=== PATIENT | female | born 1950 | race Caucasian/White ===

== ENCOUNTER → 2016-09-25 16:59 | Outpatient (CLI) | payer MEDICARE ==
[2016-01-15 14:31] VITALS: BMI 45.8
[~2016-09-25 16:59] MED LIST: ARTHROTEC EC 71 EACH PO; DESERYL100 MG PO; HYDROCODON-ACE1 EAC9 PO; OMEPRAZOLE40 MG PO; PROAIR HFA8.5 GM INH; PROZAC20 MG PO; VICTOZA0.6 MG/0.1 SQ; VITAMIN D250000 UNIT PO; XANAX0.5 MG PO
== END | disposition home or self-care (01) ==
LOC: D.MAMMO 14:30
DX: Z12.31 Encounter for screening mammogram for malignant neoplasm of breast (principal)

== ENCOUNTER → 2016-10-21 09:45 | Outpatient (CLI) | payer MEDICARE ==
[2016-01-15 14:31] VITALS: BMI 45.8
== END | disposition home or self-care (01) ==
LOC: D.MAMMO 09:45
DX: R92.8 Other abnormal and inconclusive findings on diagnostic imaging of breast (principal)

== ENCOUNTER 2016-11-24 05:25 | Day surgery (SDC) | payer MEDICARE ==
[~2016-11-24 05:25] MED LIST changes: +HYDROCODONE-APA1 TAB PO; +KLONOPIN0.5 MG PO
[2016-11-24 06:01] LABS: BASOPHILS 0.5 % (0-2); EOSINOPHILS 4.1 % (0-7); HEMATOCRIT 46.8 % (36.0-48.0); HEMOGLOBIN 14.9 g/dL (12-16); LYMPHOCYTES 38.6 % (15-50); MCHC 31.8 g/dL (31.0-37.0); MCV 100.4 fL (80.0-100.0); MONOCYTES 12.3 % (2-11); NEUTROPHILS 44.5 % (40-80); PLATELET COUNT 229 10x3/uL (130-400); RBC 4.66 10x6/uL (4.00-5.40); RDW 13.6 % (11.5-14.5); WBC 3.9 10x3/uL (4.8-10.8)
[2016-11-24 06:17] LABS: CALC OSMOLALITY 285 mosm/kg (275-300); CARBON DIOXIDE 32.1 mmol/L (21.0-32.0); CHLORIDE - SERUM 105 mmol/L (98-107); CREATININE - SERUM 0.8 mg/dL (0.6-1.3); GLUCOSE 97 mg/dL (74-106); POTASSIUM - SERUM 3.8 mmol/L (3.5-5.1); SODIUM 143 mmol/L (136-145); UREA NITROGEN 15 mg/dL (7-18); eGFR NON AFRICAN AMERICAN 77 mL/min (90-120)
[2016-11-24] MEDS ORDERED: OMEPRAZOLE40 MG PO (08:42)
[2016-11-24 08:50] VITALS: BP 115/72; BMI 42.6
[2016-11-24] MEDS ORDERED: HYDROCODONE-APA1 TAB PO (10:40)
--- NOTE | 2016-11-24 12:00 | NUR ---
1155 1 NORCO 10/325MG PO FOR PAIN TO LEFT BREAST. RANKS PAIN 07/18. EATING FULL LIQUID DIET WITHOUT DIFFICULTY. Denis ZAVALA R.N.
--- NOTE | 2016-11-24 15:27 | NUR ---
1330 DRESSED. AWAKE & ALERT. GIVEN DISCHARGE INFORMATION INCLUDING: RX: NORCO 10/325MG, MED REC, [facility] OUT PATIENT D/C INSTRUCTIONS, & [facility] COMPUTER GENERATED DISCHARGE INSTRUCTIONS FOR LUMPECTOMY. PT VOICED UNDERSTANDING. TO PRIVATE CAR PER WHEELCHAIR BY VOLUNTEER. HOME WITH SISTER LUIS FELIPE CORRALES. Denis ZAVALA R.N.
--- NOTE | 2016-11-27 13:11 | OP ---
PATIENT NAME: CE CHAPIN MEDICAL RECORD: [id number] :54 LOCATION:D.OPS ADMISSION DATE: SURGEON: ADELAIDE NY MD DATE OF OPERATION: 11/24/2016 PREOPERATIVE DIAGNOSES: 1. Left breast microcalcifications. 2. Arthritis. 3. Asthma. POSTOPERATIVE DIAGNOSES: 1. Left breast microcalcifications. 2. Arthritis. 3. Asthma. PROCEDURE: Needle local left breast lumpectomy. SURGEON: Adelaide Ny MD REPORT OF PROCEDURE: The patient's left breast was prepped and draped in sterile fashion. Preoperatively, the patient had had a stereotactic needle localization of some microcalcifications in the posterior aspect of the left breast. A skin incision was made on the superior aspect of the left breast and electrocautery was used to dissect through the subcutaneous tissues. We tunneled down around the wire all the way to its conclusion and was able to completely remove the wire and the surrounding tissues. The specimen was sent off to radiology. We were unable to definitively see the microcalcifications in the specimen, but the wire was intact and there was a good core of tissue around it. The patient's wound was then irrigated out thoroughly with normal saline. I inspected one more time and there were not any distinct masses that were palpable in the breast. A 3-0 Vicryl was used to close the subcutaneous space and 5-0 Monocryl was used to close the skin. We infused a total of 10 mL 0.25% Marcaine into the surrounding tissues and the wound was dressed appropriately. COMPLICATIONS: None. CONDITION: Stable. ANESTHESIA: General endotracheal and local. BLOOD LOSS: Minimal. TRANSINT:[id number] Voice Confirmation ID: [id number] DOCUMENT ID: [id number] ADELAIDE NY MD at 1311 CC: NESTOR SYED MD [id number] DICTATION DATE: 11/24/16 1038 CYTOLOGIST: 11/24/16 1101 [facility] 11/24/[address] [address]
== END 2016-11-24 13:30 | disposition home or self-care (01) ==
LOC: D.OPS 05:25 → D.PAN 07:30 → D.MAMMO 07:30 → D.OPS 07:30
PROVIDERS: Surgery
DX: R92.0 Mammographic microcalcification found on diagnostic imaging of breast (principal); M19.90 Unspecified osteoarthritis, unspecified site; J45.909 Unspecified asthma, uncomplicated; K21.9 Gastro-esophageal reflux disease without esophagitis; Z01.812 Encounter for preprocedural laboratory examination

== ENCOUNTER 2017-08-12 10:36 | Outpatient (CLI) | payer OTHER, MEDICAID ==
[~2017-08-12] VITALS: Ht 160 cm; Wt 131.8 kg
--- NOTE | ~2017-08-12 | OP ---
PATIENT NAME: CE CHAPIN MEDICAL RECORD: [id number] :54 LOCATION:D.CAT ADMISSION DATE: SURGEON: JASMEET SOSA MD DATE OF OPERATION: 08/12/2017 PROCEDURE: Lead portion of permanent pacemaker placement. SURGEON: Kasi Martin MD INDICATION: Sick sinus syndrome with pauses greater than 3 seconds. DESCRIPTION OF PROCEDURE: After left subclavian was cannulated via modified Seldinger technique via Dr. Martin, first, under fluoroscopic guidance, I placed the RV lead in RV apex without difficulty. After adequate R waves and thresholds were obtained, I then passed the right atrial lead into right atrial appendage without difficulty. After adequate thresholds and P waves were obtained, leads were attached to appropriate poles of the generator and pocket was closed via Dr. Martin. IMPRESSION: Successful lead portion of permanent pacemaker placement. COMPLICATIONS: None. ESTIMATED BLOOD LOSS: Minimal. DISPOSITION: To the floor, stable. TRANSINT:[id number] Voice Confirmation ID: [id number] DOCUMENT ID: [id number] JASMEET SOSA MD at 0816 CC: [id number] DICTATION DATE: 08/12/17 1404 MIX MILL TENDER: 08/12/17 1416 DEP CLI 08/13/17 [place] [address] [place] [address]
--- NOTE | ~2017-08-12 | HEMODYNAMI ---
PATIENT:CE CHAPIN MEDICAL RECORD: [id number] : 54 LOCATION:DDERIK ADMISSION DATE: 08/12/17 Generatedon:08/12/201714:12 Patient name: CE CHAPIN Patient #: [id number] SSN: : 1950 Date of study: 08/12/2017 Page: Of Hemodynamic Procedure Report Patient Data Patient Demographics Procedure consent was obtained First Name: CE Gender: Female Last Name: TAVARES : 1950 [facility] Initial: FANNIE Age: 66 year(s) Patient #: [id number] Race: Ethnicity: or Additional ID: [id number] Contact details [address]: [address] [place] [address] State: [place] City: [place] Zip code: [address] Past Medical History Allergies Allergen Reaction Date Comments Reported Sulfa drugs 08/12/2017 Admission Admission Data Admission Date: 08/12/2017 Admission Time: 10:36 Procedure Procedure Types Cath Procedure Diagnostic Procedure PPM/ICD PPM Dual Implant Sedation Charges Moderate Sedation up to 30 minutes Procedure Description Procedure Date Procedure Date: 08/12/2017 Procedure Start Time: 13:39 Procedure End Time: 14:09 Procedure Staff Name Function Gonzalo Pace MD Performing Physician Davion Nicholson RT Monitor Kasi Martin MD Assisting physician Jan Brock RN Nurse Steven De La O RT Scrub Yeimi Shankar RT Monitor Procedure Data Cath Procedure Fluoroscopy Diagnostic fluoroscopy Total fluoroscopy Time: 2.9 time: 2.9 min min Diagnostic fluoroscopy Total fluoroscopy dose: 112 dose: 112 mGy mGy Estimated blood loss: 10 ml Procedure Complications No complications Procedure Medications Medication Administration Route Dosage Ancef (1Gm/50ml NS) I.V.P.B 1 g Ancef Irrigation Topical 1 g (1gm/500ml NS) Fentanyl I.V. 50 mcg Versed I.V. 1 mg Oxygen NC 2 l/min Fentanyl I.V. 50 mcg Versed I.V. 1 mg Fentanyl I.V. 50 mcg Lopressor I.V. 5 mg Hemodynamics Rest Heart Rate: 66 (bpm) Snapshots Pre Cath Intra NCS Post Cath Vital Signs Time Heart Resp SPO2 etCO2 NIBP (mmHg) Rhythm Pain Sedation Rate (ipm) (%) (mmHg) Status Level (bpm) 13:20:19 70 17 96 0 157/81(126) NSR 0 (11) 10(A) , No pain 13:24:44 65 18 92 0 149/75(116) NSR 0 (11) 10(A) , No pain 13:29:03 66 16 95 0 146/78(117) NSR 0 (11) 10(A) , No pain 13:33:26 65 16 97 0 146/78(118) NSR 0 (11) 10(A) , No pain 13:37:42 67 16 96 0 145/82(120) NSR 0 (11) 10(A) , No pain 13:42:00 94 17 98 0 142/81(119) NSR 0 (11) 9(A) , No pain 13:46:20 71 17 95 0 141/72(103) NSR 0 (11) 9(A) , No pain 13:50:36 75 16 94 0 120/65(88) NSR 0 (11) 9(A) , No pain 14:00:57 100 17 98 0 155/94(138) NSR 0 (11) 9(A) , No pain 14:05:19 81 17 99 0 134/91(119) NSR 0 (11) 10(A) , No pain 14:09:35 76 16 98 0 129/84(114) NSR 0 (11) 10(A) , No pain Medications Time Medication Route Dose Verified Delivered Reason Notes Effective ness by by 13:14:46 Ancef I.V.P.B 1 g Gonzalo Montoya Per (1Gm/50ml St Abe Brock RN physician NS) 13:14:51 Ancef Topical 1 g Gonzalo Montoya Per Irrigation St Abe Brock RN physician (1gm/500ml NS) 13:31:54 Fentanyl I.V. 50 Gonzalo Montoya for mcg [facility] Abe Brock RN sedation 13:32:01 Versed I.V. 1 mg Gonzalo Montoya for [facility] Abe Brock RN sedation 13:35:45 Oxygen NC 2 Gonzalo Montoya Per l/min St Abe Brock RN physician 13:38:21 Fentanyl I.V. 50 Gonzalo Montoya for [facility] Abe Brock RN sedation 13:38:26 Versed I.V. 1 mg Gonzalo Montoya for [facility] Abe Brock RN sedation 13:41:11 Fentanyl I.V. 50 Gonzalo Montoya for [facility] Abe Brock RN sedation 13:59:52 Lopressor I.V. 5 mg Gonzalo Montoya Per [facility] Abe Brock RN physician Procedure Log Time Note 12:53:56 Jan Brock RN sent for patient. Start room use. 12:53:59 Time tracking: Regular hours (M-F 7:00 - 5:00) 13:01:09 Informed consent obtained and on chart 13:01:14 Diagnostic Cath Status : Elective 13:04:25 Plan of Care:Hemodynamics will remain stable., Cardiac rhythm will remain stable., Comfort level will be maintained., Respiratory function will remain adequate., Patient/ family verbilizes understanding of procedure., Procedure tolerated without complication., Recovers from procedure without complications.. 13:05:32 PEELAWAY 7FR Safe Sheath (SU7) opened to sterile field. 13:05:33 Cautery Pushbutton Pencil opened to sterile field. 13:05:34 Mepilex Dressing ([id number]) opened to sterile field. 13:05:35 Cautery Tip Distribution Center Supervisor opened to sterile field. 13:05:36 PEELAWAY 7FR Safe Sheath (SU7) opened to sterile field. 13:06:08 3-0 Vicryl Single Pack [id number] opened to sterile field. 13:06:09 5-0 Monocryl PS3 [id number] opened to sterile field. 13:07:08 Medtronic 4574-45 PPM Lead opened to sterile field. 13:07:09 Medtronic 4074-52 PPM Lead opened to sterile field. 13:07:10 Medtronic Advisa MRI PPM Dual Generator [id number] opened to sterile field. 13:07:54 Patient received from Pre/Post Procedure Room to CCL 3 Alert and oriented. Tansferred to table in Supine position. 13:07:56 Warm blankets applied, and bahman hugger turned on for patient comfort. 13:07:56 Correct patient and procedure confirmed by team. 13:14:46 Ancef (1Gm/50ml NS) 1 g I.V.P.B was administered by Jan Brock RN; Per physician; 13:14:51 Ancef Irrigation (1gm/500ml NS) 1 g Topical was administered by Jan Brock RN; Per physician; 13:19:03 Vital chart was started 13:25:46 ECG and BP/O2 sat monitors applied to patient. 13:25:48 Baseline sample Acquired. 13:25:52 Rhythm: sinus rhythm 13:25:54 Full Disclosure recording started 13::19 H&P Date Dictated: 07/28/2017 Greater than 30 days; new H&P dictated by physician. Or brief H&P completed., Emergent; H&P N/A, Within 30 days and on chart., H&P Addendum completed by physician on day of procedure. (MUST COMPLETE FOR ALL OUTPATIENTS), ER History on chart., New H&P dictated by physician.. 13:27:33 Pre-procedure instructions explained to patient. 13:27:34 Pre-op teaching completed and patient verbalized understanding. 13:28:21 Family in waiting room. 13:28:23 Patient NPO since Breakfast. 13:28:35 Patient allergic to Sulfa drugs 13:29:13 Is the patient allergic to Iodine/contrast media? No. 13:29:18 Patient diabetic? No. 13:29:32 Is patient on blood thinner?No 13:29:36 Patient not . Patient is over age 55. 13:29:38 Previous problem with sedation/anesthesia? No ? 13:29:40 Snore? Yes 13:29:41 Sleep apnea? Yes 13:29:42 Deviated septum? No 13:29:43 Opens mouth fully? Yes 13:29:44 Sticks out tongue? Yes 13:29:51 Airway obstruction? Yes ASTHMA 13:29:55 Dentures? Yes IN TIGHT 13:30:00 Patient pain scale 0/10 ?. 13:30:13 IV patent on arrival in left antecubital with 0.9% NaCl at [facility]. 13:30:25 Left chest area was prepped with chlora-prep and draped in sterile fashion 13:30:26 Alarms reviewed by R. N. 13:30:26 Sharps counted by scrub and verified by R.N. 13:30:53 Medtronic 4574-45 PPM Lead opened to sterile field. 13:30:59 Medtronic 4074-52 PPM Lead opened to sterile field. 13:31:07 Medtronic Advisa MRI PPM Dual Generator [id number] opened to sterile field. 13:31:44 --------ALL STOP TIME OUT------ 13:31:44 Final Timeout: patient, procedure, and site verified with staff and physician. All members of the team are in agreement. 13:31:48 Left chest site verified by team. 13:31:52 Physical assessment completed. ASA score P 2 - A patient with mild systemic disease as per Gonzalo Pace MD. 13:31:54 Fentanyl 50 mcg I.V. was administered by Jan Brock RN; for sedation; 13:31:55 Sedation plan: IV Moderate Sedation Medication:Versed, Fentanyl 13:32:01 Versed 1 mg I.V. was administered by Jan Brock RN; for sedation; 13:33:37 Medtronic sales representative graphic art EUNICE FRANCISCO present for procedure. 13:34:34 5-0 Monocryl PS2 [id number] opened to sterile field. 13:34:34 2-0 Ticron Multipack ([id number]) opened to sterile field. 13:34:34 3-0 Vicryl Single Pack [id number] opened to sterile field. 13:35:45 Oxygen 2 l/min NC was administered by Jan Brock RN; Per physician; 13:38:21 Fentanyl 50 mcg I.V. was administered by Jan Brock RN; for sedation; 13:38:26 Versed 1 mg I.V. was administered by Jan Brock RN; for sedation; 13:38:53 Pre sharps counted by scrub and verified by RN: Sutures: 7; Sponges: 5; Stick needles: 2; Skin needles: 2; Blade: 1; Cautery: 1 13:38:55 Grounding pad site Left thigh. 13:38:57 Grounding pad site free from injury. 13:39:00 Procedure started. 13:39:37 Lidocaine 1% w/epi and Bupivacaine 0.5% was administered to left subclavicular area by Kasi Maritn MD . 13:40:35 Incision made to left subclavicular area. 13:41:11 Fentanyl 50 mcg I.V. was administered by Jan Brock RN; for sedation; 13:43:08 Generator pocket made/opened. 13:45:36 Left subclavian vein accessed with 7Fr Peel Away Sheath. 13:46:32 Left subclavian vein accessed with 7Fr Peel Away Sheath. 13:50:44 Ventricular lead inserted and advanced. 13:51:52 Atrial lead inserted and advanced. 13:54:01 Ventricular lead positioned. 13:54:24 Ventricular lead tested. 13:55:11 Atrial lead positioned. 13:55:32 Atrial lead tested. 13:57:58 Peel-a-way sheath was split and removed. 13:57:58 Peel-a-way sheath was split and removed. 13:58:10 PPM Dual was attached to lead(s) and inserted into pocket. 13:58:40 PPM Dual was inserted subcutaneously to left chest. 13:59:41 Device pocket was irrigated with Ancef. 13:59:52 Lopressor 5 mg I.V. was administered by Jan Brock RN; Per physician; 14:00:45 Atrial lead attachment was completed with 2-0 ticron. 14:00:51 Ventricular lead attachment was completed with 2-0 ticron. 14:00:58 Generator was sutured in place with 2-0 ticron. 14:01:46 Subcutaneous closure was completed with 3-0 vicryl. 14:01:50 Skin closure was completed with 5-0 monocryl. 14:04:51 Lt Chest incision was dressed with Mepilex dressing. 14:05:03 Post sharps counted by scrub and verified by RN: Sutures: 7; Sponges: 5; Stick needles: 2; Skin needles: 2; Blade: 1; Cautery: 1 14:05:33 Parameters-- Generator: Mode: AAIR/DDDR. Lower Rate: 60bpm. Upper Rate: 120bpm. 14:06:20 Parameters--Ventricular P/R Wave: 5.6mV. Current: .10mA; Threshold: .2V; Impedence: 984OHMS. 14:06:56 Parameters--Atrial P/R Wave: 2.8mV. Current: 1.40mA; Threshold: .8V; Impedence: 541OHMS. 14:07:09 Procedure ended.(Physican Out) 14:07:14 Fluoroscopy time 02.90 minutes. 14:07:20 Fluoroscopy dose: 112 mGy 14:07:20 Flurop Dose total: 112 14:07:32 Post-procedure physical assessment completed. ASA score P 2 - A patient with mild systemic disease as per Gonzalo Pace MD. 14:07:35 Post procedure rhythm: paced 14:07:37 Estimated blood loss: 10 ml 14:07:39 Post procedure instruction explained to patient.Patient verbalizes understanding. 14:07:39 Patient needs reinforcement of post procedure teaching. 14:08:16 Procedure type changed to Cath procedure, Diagnostic procedure, PPM/ICD, PPM Dual Implant, Sedation Charges, Moderate Sedation up to 30 minutes 14:08:51 Procedure and supply charges have been captured, reviewed, submitted and are correct. 14:08:54 Procedure Complication : No complications 14:08:57 Vital chart was stopped 14:08:57 See physician's report for complete and final results. 14:08:58 Report given to PCU. 14:09:00 Patient transfered to PCU with Bed. 14:09:02 Procedure ended. 14:09:02 Full Disclosure recording stopped 14:09:05 End room use (Document Last) Device Usage Item Name Manufacture Quantity Catalog Hospital Part Current Minimal Lot# / Number Charge Number Stock Stock Serial# Code PEELAWAY 7FR Microtek 2 SU7 [id number] 10 Safe Sheath Medical Inc[employer] (SU7) Cautery Microtek 1 [id number] 66953 [id number] 5 Pushbutton Medical Inc. Pencil Mepilex Cardinal 1 [id number] 667156 236436 675635 5 [facility] (754324) Cautery Tip Microtek 1 [id number] [id number] [id number] 5 Distribution Center Supervisor [employer] Inc. 3-0 Vicryl Ethicon 2 [id number] 985930 965987 945163 5 Single Pack [id number] 5-0 Monocryl Ethicon 1 [id number] 332353 608466 5 PS3 [id number] Medtronic Medtronic 2 4574-45 880788 926260 5 [id number] 4574-45 PPM EXP Lead 2019-03-12 [id number] Medtronic Medtronic 2 4074-52 667323 745245 5 [id number] 4074-52 PPM EXP Lead 2019-06-02 [id number] Medtronic Medtronic 2 [id number] [id number] [id number] 5 [id number] Advisa MRI EXP: PPM Dual 2018-09-04 Generator [id number] A2DR01 5-0 Monocryl Ethicon 1 Y495G 571627 348111 174417 5 PS2 Y495G 2-0 Ticron Ethicon 7 [id number] 769925 60667 040544 5 Multipack ([id number]) Signature Audit Banco Stage Time Signature Unsigned Intra-Procedure 08/12/2017 Yeimi Shankar 2:12:41 PM RT(R) Signatures Monitor : Davion Nicholson RT Signature : Date : Time : Monitor : Yeimi Shankar Signature : RT Date : Time : [place] [address] [place] [address]
--- NOTE | ~2017-08-12 | OP ---
PATIENT NAME: CE CHAPIN MEDICAL RECORD: [id number] :54 LOCATION:D.CAT ADMISSION DATE: SURGEON: KASI NY MD DATE OF OPERATION: 08/12/2017 PREOPERATIVE DIAGNOSES: 1. Sick sinus syndrome. 2. Diastolic dysfunction. 3. Morbid obesity with a BMI of 50. POSTOPERATIVE DIAGNOSES: 1. Sick sinus syndrome. 2. Diastolic dysfunction. 3. Morbid obesity with a BMI of 50. PROCEDURES: 1. Left subclavian vein dual-lead pacemaker. 2. Fluoroscopic interpretation. SURGEON: Kasi Ny MD CO-SURGEON: Gonzalo Ewing MD REPORT OF PROCEDURE: The patient's left chest was prepped and draped in sterile fashion. A total of 20 mL of 1% lidocaine with epinephrine was infused into the surrounding tissues. A transverse incision was made on the left superior lateral chest and a subcutaneous pouch was made over the pectoral fascia. We accessed the left subclavian vein x2 and guidewires were advanced. Fluoroscopy was used to note that the wires were in good position in the venous system. Dilator trocar device was replaced over the wires and the wires and dilators were removed. The leads were advanced through the trocars. At this point, Dr. Ewing, positioned the leads appropriately in the atrium and ventricle. Once the leads were noted to be in good position, then the trocars were removed. The leads were affixed to the pacemaker and the pacemaker was placed in the subcutaneous pouch. The leads and the pacemaker were all sutured to the pectoral fascia using interrupted 0 Ti-Cron. The wound was then irrigated out with antibiotic solution. The subcutaneous tissues were reapproximated with interrupted 3-0 Vicryl and the skin was closed with running subcutaneous 5-0 Monocryl. COMPLICATIONS: None. CONDITION: Stable. ANESTHESIA: Local MAC. BLOOD LOSS: Minimal. TRANSINT:[id number] Voice Confirmation ID: [id number] DOCUMENT ID: [id number] OPERATIVE REPORT [id number] TAVARESCE KASI SUGGS MD at 1418 CC: [id number] DICTATION DATE: 08/12/17 1411 SEWER PIPE CLEANER: 08/12/17 1424 DEP CLI 08/13/17 [place] [id number]
[2017-08-12] MEDS ORDERED: VITAMIN D5000 UNIT PO (10:53)
[2017-08-12] MEDS ORDERED: LEVOXYL25 MCG PO (10:53)
[2017-08-12] MEDS ORDERED: ZYRTEC10 MG PO (10:53)
[2017-08-12 11:15] VITALS: BP 148/76; Ht 160 cm; Wt 131.8 kg
[2017-08-12 11:20] LABS: HEMATOCRIT 41.5 % (36.0-48.0); HEMOGLOBIN 13.6 g/dL (12-16); MCH 32.1 pg (26.0-34.0); MCHC 32.8 g/dL (31.0-37.0); MCV 97.9 fL (80.0-100.0); MEAN PLATELET VOLUME 9.9 fL (7.4-10.4); RBC 4.24 10x6/uL (4.00-5.40); RDW 13.5 % (11.5-14.5); WBC 4.8 10x3/uL (4.8-10.8)
[2017-08-12 11:29] LABS: ANION GAP 8.8 mmol/L (8-16); CALCIUM 9.4 mg/dL (8.5-10.1); CARBON DIOXIDE 31.2 mmol/L (21.0-32.0); CREATININE - SERUM 0.9 mg/dL (0.6-1.3)
[2017-08-12 11:32] LABS: INR 0.99 (0.85-1.17); PROTIME 12.7 SECONDS (11.6-15.0)
[2017-08-13 08:00] VITALS: BP 145/77
== END 2017-08-13 12:30 | disposition home or self-care (01) ==
LOC: D.CATH 10:36 → D.M2 14:00 → D.CATH 08-13 12:30
PROVIDERS: Internal Medicine Interventional Cardiology
DX: I49.5 Sick sinus syndrome (principal); I50.30 Unspecified diastolic (congestive) heart failure; E66.01 Morbid (severe) obesity due to excess calories; Z68.43 Body mass index [BMI] 50.0-59.9, adult; Z01.812 Encounter for preprocedural laboratory examination

== ENCOUNTER → 2017-09-14 20:32 | Outpatient (CLI) | payer OTHER, MEDICAID ==
[2017-08-12 11:15] VITALS: BMI 51.4
[~2017-09-14 20:32] MED LIST changes: +LEVOXYL25 MCG PO; +VITAMIN D5000 UNIT PO; +ZYRTEC10 MG PO
== END | disposition home or self-care (01) ==
LOC: D.MAMMO 11:15
DX: Z12.31 Encounter for screening mammogram for malignant neoplasm of breast (principal)

== ENCOUNTER → 2017-10-05 09:36 | Outpatient (CLI) | payer OTHER, MEDICAID ==
[2017-08-12 11:15] VITALS: BMI 51.4
== END | disposition home or self-care (01) ==
LOC: D.MRI 10-04 11:00
DX: M17.0 Bilateral primary osteoarthritis of knee (principal)

== ENCOUNTER 2017-10-18 21:00 | Outpatient (CLI) | payer OTHER, MEDICAID ==
[2017-08-12 11:15] VITALS: BMI 51.4
== END 2017-10-18 23:59 | disposition home or self-care (01) ==
LOC: D.MAMMO 21:00
DX: R92.8 Other abnormal and inconclusive findings on diagnostic imaging of breast (principal)

== ENCOUNTER → 2018-05-11 17:20 | Outpatient (CLI) | payer OTHER, MEDICAID ==
[2017-08-12 11:15] VITALS: BMI 51.4
== END | disposition home or self-care (01) ==
LOC: D.MAMMO 05-05 10:30 → D.US 05-05 11:30 → D.MAMMO 11:00
PROVIDERS: ATTEND Family Medicine
DX: R92.8 Other abnormal and inconclusive findings on diagnostic imaging of breast (principal)

== ENCOUNTER → 2018-06-22 11:04 | Outpatient (CLI) | payer OTHER, MEDICAID ==
[2017-08-12 11:15] VITALS: BMI 51.4
== END | disposition home or self-care (01) ==
LOC: D.HCCARDIO 11:00
PROVIDERS: ATTEND Internal Medicine Cardiovascular Disease
DX: R00.2 Palpitations (principal)

== ENCOUNTER 2018-06-29 12:00 | Outpatient (CLI) | payer OTHER, MEDICAID ==
--- NOTE | ~2018-06-29 | HEMODYNAMI ---
PATIENT:CE CHAPIN MEDICAL RECORD: [id number] : 54 LOCATION:[facility] ADMISSION DATE: 06/29/18 Generatedon:06/29/201814:06 Patient name: CE CHAPIN Patient #: [id number] SSN: : 1950 Date of study: 06/29/2018 Page: Of Hemodynamic Procedure Report Patient Data Patient Demographics Procedure consent was obtained First Name: CE Gender: Female Last Name: TAVARES : 1950 [facility] Initial: FANNIE Age: 67 year(s) Patient #: [id number] Race: Ethnicity: or Additional ID: [id number] Contact details Address: [address] [place] [address] State: [place] City: [address] Zip code: [address] Past Medical History Allergies Allergen Reaction Date Comments Reported Sulfa drugs 08/12/2017 Other allergy 06/29/2018 sulfa Admission Admission Data Admission Date: 06/29/2018 Admission Time: 12:00 Weight (lbs.): 315.26 Weight (kg.): 143 Lab Results Lab Result Date: 06/29/2018 Lab Result Time: 0:40 Biochemistry Name Units Result Min Max BUN mg/dl 11 --(-*--)-- 7 18 Creatinine mg/dl 0.8 --(-*--)-- 0.6 1.3 CBC Name Units Result Min Max Hematocrit % 42.4 --(*---)-- 42 54 Hemoglobin g/dl 14.1 --(*---)-- 13.5 17.5 Procedure Procedure Types Cath Procedure Diagnostic Procedure [facility] w/Coronaries Sedation Charges Moderate Sedation up to 15 minutes Procedure Description Procedure Date Procedure Date: 06/29/2018 Procedure Start Time: 13:45 Procedure End Time: 14:05 Procedure Staff Name Function Orlin Vergara MD Performing Physician Agapito Morales RT Monitor Claudia Segovia RT Scrub Pedro Luis Wong RN Nurse Procedure Data Cath Procedure Fluoroscopy Diagnostic fluoroscopy Total fluoroscopy Time: 2.1 time: 2.1 min min Diagnostic fluoroscopy Total fluoroscopy dose: 963 dose: 963 mGy mGy Contrast Material Contrast Material Type Amount (ml) Isovue 300 61 Entry Location Entry Primary Successful Side Size Upsize Upsize Entry Closure Succes sful Closure Location (Fr) 1 (Fr) 2 (Fr) Remarks Device Remarks Femoral Right 5 Fr Exoseal artery Estimated blood loss: 5 ml Diagnostic catheters Device Type Used For End Catheter Placement MULTIPACK JL 4.0 5Fr Procedure catheter MULTIPACK 3DRC 5Fr Procedure catheter MULTIPACK Pigtail 5 Fr Procedure catheter Procedure Complications No complications Procedure Medications Medication Administration Route Dosage 0.9% NaCl I.V. 100 ml/hr Oxygen etCO2 Nasal cannula 2 l/min Heparin Flush Bag added to field 2 bags (1000units/500ml NS) Lidocaine 2% added to field 20 Versed I.V. 2 mg Fentanyl I.V. 100 mcg Versed I.V. 1 mg Hemodynamics Rest HGB: 14.1 (g/dl) Heart Rate: 68 (bpm) Pressure Samples Time Site Value (mmHg) Purpose Heart Use Rate(bpm) 14:00 LV 121/16,7 EDP 113 14:01 AO 165/78(116) Pullback 85 14:01 LV 151/-5,18 Pullback 85 Gradients Valve Time Site 1 Site 2 Mean SEP/DFP Peak To Heart Use (mmHg) (sec/min) Peak Rate (mmHg) (bpm) Aortic 14:01 LV AO 0 7 0 85 151/-5,18 165/78(116) Calculations Valve P-P Mean Valve Index Valve Source Name Gradient Area Flow (cm2) Aortic 0 0 0 0 Snapshots Pre Cath Intra NCS Post Cath Vital Signs Time Heart Resp SPO2 etCO2 NIBP (mmHg) Rhythm Pain Sedation Rate (ipm) (%) (mmHg) Status Level (bpm) 13:28:22 70 14 97 41.8 150/85(119) NSR 0 (11) 10(A) , No pain 13:32:36 67 15 94 38.1 140/85(111) NSR 0 (11) 10(A) , No pain 13:36:50 67 10 93 41.1 136/74(99) NSR 0 (11) 10(A) , No pain 13:41:02 64 19 94 40.3 137/74(103) NSR 0 (11) 10(A) , No pain 13:45:14 66 13 93 40.3 130/76(112) NSR 0 (11) 10(A) , No pain 13:49:22 66 18 92 40.4 126/83(95) NSR 0 (11) 10(A) , No pain 13:54:31 67 12 93 41.9 123/74(91) NSR 0 (11) 9(A) , No pain 13:58:37 69 13 93 42.6 117/82(108) NSR 0 (11) 9(A) , No pain 14:02:43 70 12 94 43.3 134/74(106) NSR 0 (11) 10(A) , No pain Medications Time Medication Route Dose Verified Delivered Reason Notes Eff ectiveness by by 13:28:59 0.9% NaCl I.V. 100 Pedro Luis Pedro Luis Per ml/hr Marvin Wong physician RN RN 13:29:08 Oxygen etCO2 2 Pedro Luis Pedro Luis for low 02 Nasal l/min Lorigan Lorigan sats cannula RN RN 13:29:17 Heparin Flush added 2 Pedro Luis Pedro Luis used for Bag to bags Lorigan Shanaigan procedure (1000units/500ml field RN RN NS) 13:29:27 Lidocaine 2% added 20ml Pedro Luis Pedro Luis for local to vial Lorigan Lorigan anesthetic field RN RN 13:41:02 Versed I.V. 2 mg Pedro Luis Pedro Luis for Lorigan Lorigan sedation RN RN 13:41:11 Fentanyl I.V. 100 Pedro Luis Pdero Luis for mcg Lorigan Lorigan sedation RN RN 13:43:14 Versed I.V. 1 mg Pedro Luis Pedro Luis for Lorigan Lorigan sedation RN medicare insurance specialist Log Time Note 13:14:02 Diagnostic Cath Status : Elective 13:14:22 Pedro Luis Wong RN sent for patient. Start room use. 13:14:24 Time tracking: Regular hours (M-F 7:00 - 5:00) 13:14:28 Plan of Care:Hemodynamics will remain stable., Cardiac rhythm will remain stable., Comfort level will be maintained., Respiratory function will remain adequate., Patient/ family verbilizes understanding of procedure., Procedure tolerated without complication., Recovers from procedure without complications.. 13:17:20 Patient received from Pre/Post Procedure Room to CCL 2 Alert and oriented. Tansferred to table in Supine position. 13:17:21 Warm blankets applied, and bahman hugger turned on for patient comfort. 13:17:21 Correct patient and procedure confirmed by team. 13:17:35 Signed procedure consent form obtained from patient. 13:17:37 ECG and BP/O2 sat monitors applied to patient. 13:17:38 Pre-procedure instructions explained to patient. 13:17:38 Pre-op teaching completed and patient verbalized understanding. 13:17:41 Family in waiting room. 13:17:43 Patient NPO since Breakfast. 13:27:14 Vital chart was started 13:27:17 Baseline sample Acquired. 13:27:19 Rhythm: sinus rhythm 13::21 Full Disclosure recording started 13::41 H&P Date Dictated: 06/13/2018 Within 30 days and on chart., H&P Addendum completed by physician on day of procedure. (MUST COMPLETE FOR ALL OUTPATIENTS). 13:27:58 Patient allergic to Other allergysulfa 13:28:59 0.9% NaCl 100 ml/hr I.V. was administered by Pedro Luis Wong RN; Per physician; 13:29:08 Oxygen 2 l/min etCO2 Nasal cannula was administered by Pedro Luis Wong RN; for low 02 sats; 13:29:17 Heparin Flush Bag (1000units/500ml NS) 2 bags added to field was administered by Pedro Luis Wong RN; used for procedure; 13:29:27 Lidocaine 2% 20ml vial added to field was administered by Pedro Luis Wong RN; for local anesthetic; 13:33:14 Is the patient allergic to Iodine/contrast media? No. 13:33:16 Is patient on blood thinner?No 13:33:17 Patient diabetic? No. 13:33:28 Previous problem with sedation/anesthesia? No ? 13:33:30 Snore? Yes 13:33:30 Sleep apnea? No 13:33:31 Deviated septum? No 13:33:32 Opens mouth fully? Yes 13:33:33 Sticks out tongue? Yes 13:33:38 Airway obstruction? Yes asthma 13:33:43 Dentures? Yes in tight 13:33:47 Modified Santos's test Ulnar < 7 seconds 13:33:49 Patient pain scale 0/10 .. 13:33:55 IV patent on arrival in left forearm with 0.9% NaCl at [facility]. 13:34:50 Lab Result : BUN 11 mg/dl 13:34:50 Lab Result : Hemoglobin 14.1 g/dl 13:34:50 Lab Result : Creatinine 0.8 mg/dl 13:34:50 Lab Result : Hematocrit 42.4 % 13:34:53 Lab results completed and on chart. 13:34:56 Right Radial & Right Groin area was prepped with chlora-prep and draped in sterile fashion 13:34:57 Alarms reviewed by R. N. 13:34:58 Sharps counted by scrub and verified by R.N. 13:35:01 ACIST Syringe (25611) opened to sterile field. 13:35:01 Medline Cath Pack ([id number]) opened to sterile field. 13:35:02 Bag Decanter (2002S) opened to sterile field. 13:35:03 ACIST Hand Control (31452) opened to sterile field. 13:35:03 ACIST Manifold (24779) opened to sterile field. 13:35:03 Tegaderm 4 x 4 (1626W) opened to sterile field. 13:35:04 MBrace Wrist Support ([id number]) opened to sterile field. 13:35:06 SHEATH 6FR Slender (36-1060) opened to sterile field. 13:35:07 DIAGNOSTIC WIRE .035 260cm J wire (814586) opened to sterile field. 13:35:07 NEEDLE Cook 21G 4cm Radial (Z49304) opened to sterile field. 13:37:01 Patient Weight : 315.26 lbs 13:38:23 Zero performed for pressure channel P1 13:39:15 Physician arrived 13:39:16 --------ALL STOP TIME OUT------ 13:39:16 Final Timeout: patient, procedure, and site verified with staff and physician. All members of the team are in agreement. 13:39:18 Right Radial & Right Groin site verified by team. 13:39:22 Maximum allowable Isovue 300 dose 300ml. Physician notified. (300ml for normal creatinines. For patients with creatinine of 1.7 or higher multiply weight(kg) x 5 divided by creatinine.) 13:39:25 Fire Safety Assessment: A--An alcohol-based skin anteseptic being used preoperatively., C--Open oxygen or nitrous oxide is being used., D--An ESU, laser, or fiber-optic light is being used. 13:39:27 Physical assessment completed. ASA score P 2 - A patient with mild systemic disease as per Orlin Vergara MD. 13:39:29 Sedation plan: IV Moderate Sedation Medication:Versed, Fentanyl 13:41:02 Versed 2 mg I.V. was administered by Pedro Luis Wong RN; for sedation; 13:41:11 Fentanyl 100 mcg I.V. was administered by Pedro Luis Wong RN; for sedation; 13:43:14 Versed 1 mg I.V. was administered by Pedro Luis Wong RN; for sedation; 13:45:17 Procedure started. 13:45:29 Local anesthetic to right radial artery with Lidocaine 2% by Orlin Vergara MD.INITIAL ACCESS ONLY 13:48:07 unable to gain radial access, moving to femoral approach. 13:49:49 SHEATH 5FR [place] (FLE228) opened to sterile field. 13:49:53 Use device set Multipack Set 13:49:55 DIAGNOSTIC Multipack 5Fr catheter set ([id number]) opened to sterile field. 13:50:51 Local anesthetic to right femoral artery with Lidocaine 2% by Orlin Vergara MD.ADDITIONAL ACCESS 13:52:04 A 5 Fr sheath was inserted into the Right Femoral artery 13:52:14 A MULTIPACK JL 4.0 5Fr catheter was advanced over the wire and used for Procedure. 13:54:16 LCA angiography performed. 13:55:28 Catheter exchanged over wire. 13:55:33 A MULTIPACK 3DRC 5Fr catheter was advanced over the wire and used for Procedure. 13:56:52 RCA angiography performed. 13:57:22 Catheter exchanged over wire. 13:57:27 A MULTIPACK Pigtail 5 Fr catheter was advanced over the wire and used for Procedure. 14:00:39 LV hemodynamics recorded. 14:00:46 LV gram done using LEE 14:00:52 EF : 50 % 14:01:16 Catheter removed. 14:01:24 EXOSEAL 5Fr (EX500) opened to sterile field. 14:01:32 Sheath removed intact; hemostasis achieved with Exoseal to the Right Femoral artery. 14:01:36 Procedure ended.(Physican Out) 14:01:47 Fluoroscopy time 02.10 minutes. 14:01:53 Fluoroscopy dose: 963 mGy 14:01:53 Flurop Dose total: 963 14:01:56 Contrast amount:Isovue 300 61ml. 14:03:56 Sharps counted by scrub and verified by R.N. 14:04:05 Insertion/operative site no bleeding no hematoma. 14:04:07 Post-op/insertion site Right Femoral artery dressed using a 4 x 4 and Tegaderm. 14:04:43 Post right femoral artery:stable, soft, clean and dry 14:05:01 Post Procedure Pulses reassessed and unchanged 14:05:08 Post-procedure physical assessment completed. ASA score P 2 - A patient with mild systemic disease as per Orlin Vergara MD. 14:05:10 Post procedure rhythm: unchanged. 14:05:12 Estimated blood loss: 5 ml 14:05:13 Post procedure instruction explained to patient.Patient verbalizes understanding. 14:05:13 Patient needs reinforcement of post procedure teaching. 14:05:25 Procedure type changed to Cath procedure, Diagnostic procedure, LHC, LHC w/Coronaries, Sedation Charges, Moderate Sedation up to 15 minutes 14:05:43 Procedure and supply charges have been captured, reviewed, submitted and are correct. 14:05:45 Procedure Complication : No complications 14:05:47 Vital chart was stopped 14:05:47 See physician's report for complete and final results. 14:05:49 Report given to Pre/Post Procedure Room. 14:05:51 Patient transfered to Pre/Post Procedure Room with Stretcher. 14:05:53 Procedure ended. 14:05:53 Full Disclosure recording stopped 14:05:57 End room use (Document Last) Device Usage Item Name Manufacture Quantity Catalog Hospital Part Current Minimal Lot# / Number Charge Number Stock Stock Serial# Code ACIST Acist 1 77280 695608 701857 612491 20 Syringe Pathwright (19269) Systems Inc Medline Medline 1 [id number] 557988 17319 522285 5 Cath Pack ([id number]) Bag Microtek 1 574662 50255 355661 5 Decanter Medical Inc. () ACIST Hand Acist 1 80159 994586 772815 419035 5 Control Medical (84780) Systems Inc ACIST Acist 1 72672 659643 191396 021308 5 Manifold Medical (94846) Systems Inc Tegaderm 4 3M 1 1626W 578511 695299 626526 5 x 4 (1626W) MBrace Advanced 1 140-0250-00 926099 43952 949554 5 Wrist Vascular Support Dynamics ([id number]) SHEATH 6FR Terumo 1 [id number] 732662 786000 400425 5 Slender (80-1060) DIAGNOSTIC St Vladimir 1 179959 102657 049960 694922 30 WIRE .035 260cm J wire (833237) NEEDLE Cook Cook Medical 1 Z29518 343171 016024 529530 5 21G 4cm Radial (Z48189) SHEATH 5FR Terumo 1 JRE039 927866 042583 163427 5 [place] (WWE412) DIAGNOSTIC Cardinal 1 XC6505 577928 59054 164515 30 Multipack Health 5Fr catheter set (KJ5223) MULTIPACK Cardinal 1 060060 5 JL 4.0 5Fr Health catheter MULTIPACK Cardinal 1 662031 5 3DRC 5Fr Health catheter MULTIPACK Cardinal 1 274409 5 Pigtail 5 Health Fr catheter EXOSEAL 5Fr Cardinal 1 EX500 149095 236794 677119 10 (EX500) Health Signature Audit Logan Stage Time Signature Unsigned Intra-Procedure 06/29/2018 Agapito Morales 2:06:31 PM RT(R) Signatures Monitor : Agapito Morales RT Signature : Date : Time : [facility] [address] [place] [address]
[2018-06-29 12:43] VITALS: BP 157/74; BMI 54.2
[2018-06-29 12:55] LABS: BASOPHILS 0.3 % (0-2); EOSINOPHILS 1.2 % (0-7); HEMATOCRIT 42.4 % (36.0-48.0); HEMOGLOBIN 14.1 g/dL (12-16); LYMPHOCYTES 34.5 % (15-50); MCH 30.9 pg (26.0-34.0); MCHC 33.3 g/dL (31.0-37.0); MEAN PLATELET VOLUME 9.6 fL (7.4-10.4); PLATELET COUNT 236 10x3/uL (130-400); RBC 4.56 10x6/uL (4.00-5.40); RDW 14.6 % (11.5-14.5)
[2018-06-29 13:05] LABS: CALC OSMOLALITY 276 mosm/kg (275-300); CALCIUM 9.4 mg/dL (8.5-10.1); CARBON DIOXIDE 26.4 mmol/L (21.0-32.0); CHLORIDE - SERUM 104 mmol/L (98-107); CREATININE - SERUM 0.8 mg/dL (0.6-1.3); GLUCOSE 98 mg/dL (74-106); SODIUM 139 mmol/L (136-145); UREA NITROGEN 11 mg/dL (7-18); eGFR NON AFRICAN AMERICAN 76 mL/min (90-120)
--- NOTE | 2018-06-29 14:19 | NUR ---
PT ARRIVED BY STRETCHER. PLACED ON MONITORS. VSS. RIGHT GROIN DRESSING C/D/I. NO S/S OF HEMATOMA NOTED. FAMILY AT BEDSIDE.
--- NOTE | 2018-06-29 14:35 | NUR ---
RIGHT GROIN DRESSING C/D/I. NO S/S OF HEMATOMA NOTED. VSS. FAMILY AT BEDSIDE. CALL LIGHT WITHIN REACH.
--- NOTE | 2018-06-29 15:06 | NUR ---
PT RESTING COMFORTABLY. VSS. RIGHT GROIN DRESSING C/D/I. NO S/S OF HEMATOMA NOTED. FAMILY AT BEDSIDE. CALL LIGHT WITHIN REACH.
--- NOTE | 2018-06-29 15:15 | NUR ---
HEAD OF BED INC TO 30 DEGREES. RIGHT GROIN DRESSING C/D/I. NO S/S OF HEMATOMA NOTED. PT HAS CHRONIC BACK PAIN. REPOSITIONED FOR COMFORT. CALL LIGHT WITHIN REACH. VSS.
--- NOTE | 2018-06-29 15:58 | NUR ---
LEFT HAND PIV D/C'D WITH CATH TIP INTACT. PT TOLERATED WELL. HOB INC AND PT SET UP WITH SANDWICH TRAY AND DRINK. RIGHT GROIN DRESSING C/D/I. NO S/S OF HEMATOMA NOTED.
--- NOTE | 2018-06-29 16:12 | NUR ---
PT UP AND GETTING DRESSED. FINISHED EATING. DENIES NAUSEA AT THIS TIME.
--- NOTE | 2018-06-29 16:30 | NUR ---
PT AMBULATED WITH WALKER ASSIST TO RESTROOM. VOIDED WITHOUT DIFFICULTY. BACK TO ROOM. DISCUSSED DISCHARGE INSTRUCTIONS WITH PT AND PT'S FAMILY. THEY VOICED UNDERSTANDING.
--- NOTE | 2018-06-29 16:39 | NUR ---
PT TAKEN OUT TO CAR BY WHEELCHAIR. NO S/S OF DISTRESS NOTED. ALL BELONGINGS AND PAPERWORK IN HAND.
== END 2018-06-29 16:40 | disposition home or self-care (01) ==
LOC: D.CATH 12:00
PROVIDERS: ATTEND Internal Medicine Cardiovascular Disease
DX: I20.9 Angina pectoris, unspecified (principal); Z01.812 Encounter for preprocedural laboratory examination

== ENCOUNTER → 2019-01-25 21:36 | Outpatient (CLI) | payer OTHER, MEDICAID | END | disposition home or self-care (01) | LOC: D.MAMMO 15:30 | PROVIDERS: ATTEND Clinical Nurse Specialist Family Health | DX: Z12.31 Encounter for screening mammogram for malignant neoplasm of breast (principal) ==

== ENCOUNTER 2019-03-28 13:10 | Inpatient (IN) | payer OTHER, MEDICAID ==
[~2019-03-28] VITALS: Ht 160 cm; Wt 122.5 kg
[~2019-03-28 13:10] MED LIST changes: -DESERYL100 MG PO; -PROZAC20 MG PO; +PROZAC40 MG PO; +TRAZODONE HCL150 MG PO
[2019-04-11] MEDS ORDERED: OXYBUTYNIN CHLOR5 MG PO (13:18)
[2019-04-11] MEDS ORDERED: PROAIR HFA8.5 G1 INH (13:19)
[2019-04-12 12:17] LABS: CALC OSMOLALITY 278 mosm/kg (275-300); CALCIUM 9.7 mg/dL (8.5-10.1); CARBON DIOXIDE 28.7 mmol/L (21.0-32.0); CHLORIDE - SERUM 103 mmol/L (98-107); CREATININE - SERUM 0.8 mg/dL (0.6-1.3); GLUCOSE 99 mg/dL (74-106); SODIUM 138 mmol/L (136-145); UREA NITROGEN 21 mg/dL (7-18); eGFR NON AFRICAN AMERICAN 76 mL/min (90-120)
[2019-04-12 13:26] LABS: BASOPHILS 0.4 % (0-2); HEMATOCRIT 43.5 % (36.0-48.0); IMMATURE GRANULOCYTES 0.1 % (0-5); LYMPHOCYTES 31.5 % (15-50); MCH 30.4 pg (26.0-34.0); MCHC 32.2 g/dL (31.0-37.0); MCV 94.4 fL (80.0-100.0); MEAN PLATELET VOLUME 11.1 fL (7.4-10.4); MONOCYTES 7.8 % (2-11); NEUTROPHILS 59.2 % (40-80); RBC 4.61 10x6/uL (4.00-5.40); RDW 16.4 % (11.5-14.5); WBC 7.1 10x3/uL (4.8-10.8)
[2019-04-12 13:41] LABS: PLATELET COUNT 294 10x3/uL (130-400)
[2019-04-12 13:52] LABS: APTT 29.1 SECONDS (22.8-39.4); INR 0.99 (0.85-1.17)
[2019-04-12 13:56] LABS: BILIRUBIN NEGATIVE (NEGATIVE); GLUCOSE NEGATIVE (NEGATIVE); KETONE SMALL mg/dL (NEGATIVE); NITRITE NEGATIVE (NEGATIVE); SPECIFIC GRAVITY 1.015 (1.005-1.020); UROBILINOGEN NORMAL (NORMAL)
[2019-04-12 13:57] LABS: BACTERIA FEW /hpf (NEGATIVE); EPITHELIAL CELLS 0-5 /hpf (0-5); RED CELLS - URINE NONE SEEN /hpf (0-5); WHITE CELLS - URINE 0-5 /hpf (NEGATIVE)
[2019-04-18 07:59] VITALS: BP 136/73; BMI 48.6
[2019-04-18 09:24] LABS: BACTERIA FEW /hpf (NEGATIVE); BILIRUBIN NEGATIVE (NEGATIVE); EPITHELIAL CELLS OCC /hpf (0-5); GLUCOSE NEGATIVE (NEGATIVE); KETONE NEGATIVE (NEGATIVE); NITRITE NEGATIVE (NEGATIVE); RED CELLS - URINE NONE SEEN /hpf (0-5); UROBILINOGEN NORMAL (NORMAL); WHITE CELLS - URINE OCC /hpf (NEGATIVE)
--- NOTE | 2019-04-18 12:58 | NUR ---
1215 PATIENT NOTED TO HAVING LARGE BRUISE ON LEFT LOWER EXTREMITY FRONT OF HOOK BY ANKLE, ALSO A VERY SMALL HEALED SCRAP AREA BELOW BRUISE, DR GRAY AWARE OF THIS, DARSHANA.
[2019-04-18 16:04] VITALS: BP 115/69
--- NOTE | 2019-04-18 16:06 | NUR ---
RECEIVED TO ROOM 1210 VIA BED FROM PACU. A/O X3. C/O PAIN LEVEL 100. WILL MONITOR. SKIN IS INTACT WITHOUT REDNESS EXCEPT INCISION TO LEFT KNEE WHICH HAS A CLEAN DRY DRESSING IN PLACE. SCD'S AND CALEB'S ON AT THIS TIME. DAUGHTER AT BEDSIDE.
[2019-04-18 16:07] VITALS: BP 115/69; BMI 47.9
--- NOTE | 2019-04-18 16:33 | NUR ---
GIVEN 4MG DILAUDID WITH 50MG VISTARIL PO FOR C/O LEFT KNEE PAIN LEVEL 10. WILL MONITOR. REPOSITIONED TO RIGHT SIDE PER PATIENT REQUEST.
[2019-04-18 16:39] VITALS: BP 95/60
[2019-04-18 17:00] VITALS: BP 118/73
--- NOTE | 2019-04-18 18:42 | MORECARE ---
CASE MANAGEMENT DISCHARGE SUMMARY PATIENT: CE CHAPIN FANNIE UNIT: [id number] ADM DATE: 04/18/19 AGE: 68 : 52 SEX: F ROOM/BED: D.1210 AUTHOR: DINA PATEL PHYSICIAN: REFERRING PHYSICIAN: RADHA GRAY DO DATE OF SERVICE: 04/18/19 Discharge Plan Patient Name: CE CHAPIN Facility: [facility]:[place] : 1950 Planned Disposition: Anticipated Discharge Date: Discharge Date: Expected LOS: Initial Reviewer: [email or web address] Initial Review Date: 04/18/2019 Generated: 04/18/19 7:42 pm Patient Name: CE CHAPIN Page 25325 at 1842 All edits/amendments must be made on the electronic document DICTATION DATE: 04/18/191841 EQUIP MAINT ENG: HIRAM 04/18/191841 RPT#: [id number] DC DATE: STATUS: ADM IN [facility] [address] [place] [address] END OF REPORT
--- NOTE | 2019-04-18 19:02 | NUR ---
CPM PLACED AT 1825. NO CHANGES NOTED.
--- NOTE | 2019-04-18 19:24 | NUR ---
PATIENT RESTING IN BED WITH NO S/S OF DISTRESS. GUEST AT BEDSIDE. PATIENT DENIES NEEDS AT THIS TIME. BED IN LOWEST POSITION AND CALL LIGHT WITHIN REACH. ENCOURAGED THE PATIENT TO CALL IF SHE HAS NEEDS. WILL CONTINUE TO MONITOR.
[2019-04-18 20:23] VITALS: BP 130/72
[2019-04-19 00:25] VITALS: BP 103/60
[2019-04-19 04:00] VITALS: BP 119/70
--- NOTE | 2019-04-19 05:35 | NUR ---
PLACED PATIENT ON CPM TO LEFT KNEE
[2019-04-19 06:23] LABS: HEMOGLOBIN 10.7 g/dL (12-16); MCH 29.8 pg (26.0-34.0); MCHC 31.5 g/dL (31.0-37.0); MCV 94.7 fL (80.0-100.0); MEAN PLATELET VOLUME 10.8 fL (7.4-10.4); RBC 3.59 10x6/uL (4.00-5.40); RDW 16.6 % (11.5-14.5); WBC 9.6 10x3/uL (4.8-10.8)
[2019-04-19 07:00] VITALS: BP 117/53
--- NOTE | 2019-04-19 08:15 | OP ---
PATIENT NAME: CE SANCHES MEDICAL RECORD: [id number] :54 LOCATION:D. D.1210 ADMISSION DATE:04/18/19 SURGEON: LOUIE GRAY DO DATE OF OPERATION: 04/18/2019 PROCEDURE PERFORMED: Left total knee arthroplasty. PREOPERATIVE DIAGNOSIS: Left knee osteoarthritis. POSTOPERATIVE DIAGNOSIS: Left knee osteoarthritis. INDICATIONS: Ms. Sanches is a 68-year-old female who has been seen by me. I informed her that her knees were horrible and she needed them replaced, but she waited too much and she has been coming back for weight checks and has lost a close to 50 pounds, I believe, so she has been very motivated and counting her calories and told her that if she continue that we would go ahead and proceed with a knee replacement, even though she would still be a high risk for infection, bleeding, damage to nerves and vessels, need for further surgery, continued pain, fracture, and blood clots, and even . She is aware of all that and signed the consent. SURGEON: Louie Gray DO DESCRIPTION OF PROCEDURE: The patient was taken to the operative suite, laid in the supine position, given general anesthetic. After given a block by anesthesia in preoperative area, LMA was placed. She was given 3 grams of Ancef and 80 mg gentamicin preoperatively. The left lower extremity was then prepped and draped in sterile fashion. A timeout was performed and everyone was in agreement with the correct side, site, patient and procedure. We then marked out the incision, covered in Ioban. Then use of a 10-blade scalpel to carefully dissect down to the capsule. A fresh 10 blade was then used. A medial parapatellar approach to the capsule and dissection was made down to the knee, open up the joint, there was severe osteoarthritis of the knee. The patella was then everted. Fat pad was removed and there were large osteophytes off the patella that were removed. We then milled down the patella. We then flexed the knee and entered the femoral canal and cut the distal femur and cut the proximal tibia. 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 Upon removal of the bone, this was later filled with cement. We then removed the excess bone and the menisci and coagulated any bleeding. She did not get TXA. Therefore, her blood loss was higher than normal. The extension block then fit well. We then sized the femur to be 77.0, 4-in-1 cutting block was used and it was cut, then cut out for the posterior stabilize notch in the femur and removed that and then drilled the lug holes as well and put the trial on, floated the tibia, marked rotation and drilled the patella for the implant. We then exposed the tibia, removed any other spurs that we saw and did a release of the popliteal tendon due to the fact that she was severely externally rotated in flexion and that was tight. We then released that and helped the problem. We then reamed and punched the tibia using a stem, 80 mm fin stem, and cement was mixed, put in after the tibia was irrigated, cement was put in the tibia and on the implant and impacted in place. Excess cement was removed. Femur was then impacted on and then a Poly was put in between, then brought the knee into extension and put the patella on and this was squeezed and held in place. Excess cement was removed from that, we then put a povidone iodine solution in the knee and let it sit for a 10% povidone iodine with 500 mL normal saline, let it sit for 3 minutes, irrigated that out with over a liter of normal saline and irrigated out OPERATIVE REPORT [id number] CE SANCHES FANNIE the knee. We then sized the poly, went up to an 18 posterior stabilized poly and it fit very well. Had good stability in flexion and extension with varus valgus stress. We then put the Won powder and vancomycin and tobramycin powder in the knee, closed the knee with #2 Ethibond. I was assisted with this by Robb Marshall. He also assisted with closing of the skin. He is a certified surgical first cook. I closed the skin with 2-0 Vicryl in an inverted interrupted fashion and ZipLine was placed on the knee and a wound VAC put over the knee, the Restor wound VAC. She was then awakened and taken to recovery in stable condition. Blood loss approximately 1 liter. COMPLICATIONS: None. TRANSINT:[id number] Voice Confirmation ID: [id number] DOCUMENT ID: [id number] LOUIE GRAY DO at 0862 CC: [id number] DICTATION DATE: 04/18/19 142 NEUROPSYCHIATRIST: 04/18/19 2218 ADM IN [facility] [address] [id number]
--- NOTE | 2019-04-19 08:35 | NUR ---
0835 REMOVED CPM FROM LEFT LEG
--- NOTE | 2019-04-19 09:16 | NUR ---
ENCOURAGED IS USE PATIENT PULLING 2000ML ON MULTIPLE ATTEMPTS
--- NOTE | 2019-04-19 10:31 | NUR ---
1030 DR GRAY ROUNDING ON PATIENT PHYSICAL THERAPY WORKING WITH PATIENT
--- NOTE | 2019-04-19 10:46 | MORECARE ---
CASE MANAGEMENT DISCHARGE SUMMARY PATIENT: CE CHAPIN FANNIE UNIT: [id number] ADM DATE: 04/18/19 AGE: 68 : 54 SEX: F ROOM/BED: D.1210 AUTHOR: DINA PATEL PHYSICIAN: REFERRING PHYSICIAN: RADHA GRAY DO DATE OF SERVICE: 04/19/19 Discharge Plan Patient Name: CE CHAPIN Facility: [facility]:[place] : 1950 Planned Disposition: Anticipated Discharge Date: Discharge Date: Expected LOS: Initial Reviewer: [email or web address] Initial Review Date: 04/18/2019 Generated: 04/19/19 11:46 am Comments DCP- Discharge Planning Updated by [email or web address]: Erin Lopez on 04/19/19 9:[address] Plan: [facility]. CM met with patient to discuss initial discharge planning. Patient is in agreement to proceed with the assessment with present. Patient reports that she lives at home independently with her spouse. Patient is alert/oriented. Stairs/steps: 3 w/rails. PCP: Dr.Katherine Gaviria. Pharmacy: [place] [facility] [id number]. Patient states they have been able to obtain all of their prescribed medications. HHS: Yes HHS current. DME: Walker, cane, shower bench. Patient gives permission to speak with family members/care givers. 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 CM discussed the availability of HH, Rehab, DME services. Patient states she would like to go into [facility]. Patient denies being hospitalized within the past 30 days. Patient denies the use of community resources FAMILY ENGAGEMENT SPECIALIST. Transportation at time of discharge: Facility. CM will assist with DC plans/needs PRN. Last DP export: 04/18/19 5:42 p Patient Name: CE CHAPIN Page 97675 at 1046 All edits/amendments must be made on the electronic document DICTATION DATE: 04/19/19 1046 PRESS SET UP: HIRAM 04/19/19 1046 RPT#: [id number] DC DATE: STATUS: ADM IN [facility] [address] [place] [address] END OF REPORT
[2019-04-19 14:48] VITALS: Ht 160 cm; Wt 122.5 kg
[2019-04-19 15:00] VITALS: BP 116/57
--- NOTE | 2019-04-19 17:58 | MORECARE ---
CASE MANAGEMENT DISCHARGE SUMMARY PATIENT: CE CHAPIN FANNIE UNIT: [id number] ADM DATE: 04/18/19 AGE: 68 : 52 SEX: F ROOM/BED: D.1210 AUTHOR: DINA PATEL PHYSICIAN: REFERRING PHYSICIAN: RADHA GRAY DO DATE OF SERVICE: 04/19/19 Discharge Plan Patient Name: CE CHAPIN Facility: [facility]:[place] : 1950 Planned Disposition: Anticipated Discharge Date: Discharge Date: Expected LOS: Initial Reviewer: [email or web address] Initial Review Date: 04/18/2019 Generated: 04/19/19 6:58 pm Comments DCP- Discharge Planning Updated by [email or web address]: Erin Lopez on 04/19/19 9:[address] Plan: [facility]. CM met with patient to discuss initial discharge planning. Patient is in agreement to proceed with the assessment with present. Patient reports that she lives at home independently with her spouse. Patient is alert/oriented. Stairs/steps: 3 w/rails. PCP: Dr.Katherine Gaviria. Pharmacy: [place] [facility] [address]. Patient states they have been able to obtain all of their prescribed medications. HHS: Yes HHS current. DME: Walker, cane, shower bench. Patient gives permission to speak with family members/care givers. 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 CM discussed the availability of HH, Rehab, DME services. Patient states she would like to go into [facility]. Patient denies being hospitalized within the past 30 days. Patient denies the use of community resources SIDE SHOW ENTERTAINER. Transportation at time of discharge: Facility. CM will assist with DC plans/needs PRN. Last DP export: 04/19/19 9:46 a Patient Name: CE CHAPIN Page [id number] at 3027 All edits/amendments must be made on the electronic document DICTATION DATE: 04/19/191757 COMMERCIAL REAL ESTATE ASSOCIATE: HIRAM 04/19/198 RPT#: [id number] DC DATE: STATUS: ADM IN [facility] [address] [place] [address] END OF REPORT
--- NOTE | 2019-04-19 18:27 | NUR ---
1500 DR CERVANTES ROUNDING ON PATIENT
--- NOTE | 2019-04-19 19:46 | NUR ---
PATIENT RESTING IN BED WITH EYES CLOSED AND NO S/S OF DISTRESS. BED IN LOWEST POSITION AND CALL LIGHT WITHIN REACH. WILL CONTINUE TO MONITOR.
[2019-04-19 20:17] VITALS: BP 145/64
[2019-04-20 01:07] VITALS: BP 113/42
[2019-04-20 04:15] VITALS: BP 115/51
--- NOTE | 2019-04-20 04:31 | NUR ---
PLACED PATIENT ON CPM TO LEFT KNEE
[2019-04-20 06:24] LABS: BASOPHILS 0.2 % (0-2); EOSINOPHILS 0.2 % (0-7); HEMATOCRIT 28.7 % (36.0-48.0); IMMATURE GRANULOCYTES 0.2 % (0-5); LYMPHOCYTES 17.1 % (15-50); MCH 29.6 pg (26.0-34.0); MCHC 31.4 g/dL (31.0-37.0); MCV 94.4 fL (80.0-100.0); MEAN PLATELET VOLUME 10.9 fL (7.4-10.4); MONOCYTES 14.9 % (2-11); NEUTROPHILS 67.4 % (40-80); PLATELET COUNT 209 10x3/uL (130-400); RBC 3.04 10x6/uL (4.00-5.40); RDW 16.9 % (11.5-14.5); WBC 8.6 10x3/uL (4.8-10.8)
[2019-04-20 06:36] LABS: CALC OSMOLALITY 273 mosm/kg (275-300); CALCIUM 8.5 mg/dL (8.5-10.1); CARBON DIOXIDE 29.9 mmol/L (21.0-32.0); CHLORIDE - SERUM 102 mmol/L (98-107); CREATININE - SERUM 0.7 mg/dL (0.6-1.3); GLUCOSE 107 mg/dL (74-106); POTASSIUM - SERUM 4.3 mmol/L (3.5-5.1); SODIUM 137 mmol/L (136-145); UREA NITROGEN 12 mg/dL (7-18); eGFR NON AFRICAN AMERICAN 89 mL/min (90-120)
[2019-04-20 07:29] VITALS: BP 115/48
--- NOTE | 2019-04-20 07:30 | NUR ---
CPM OFF AT THIS TIME.
--- NOTE | 2019-04-20 08:47 | NUR ---
AWAKE AND ALERT. ORIENTED X3. REPORTED PAIN LEVEL 8. GIVEN 10MG OXY IR PO WITH 50MG VISTARIL PO FOR SAME. WILL MONITOR. LUNGS ARE CLEAR BILATERALLY, NO COUGH NOTED. SKIN IS INTACT WITHOUT REDNESS EXCEPT INCISION TO LEFT KNEE WHICH HAS A DRY INTACT DRESSING IN PLACE. SL TO RIGHT HAND IS PATENT WITHOUT REDNESS AT ISNERTION SITE. ATE A FEW BITES OF BREAKFAST BUT STATED SHE WASN'T HUNGRY. DENIES NEEDS.
--- NOTE | 2019-04-20 11:32 | NUR ---
REHAB PRESCREENING Rehab referral received and chart reviewed. This patient has [employer] as her insurance provider which requires a prior authorization for Acute Inpatient Rehab. OT will need to be ordered and eval completed in order to begin pre-auth. Rehab will continue to follow and submit pre auth when OT eval is in place. Case Management notified. Thank you for this referral! Radha Townsend, HEALTHCARE MANAGEMENT CONSULTANT Rehab PD
[2019-04-20 12:32] VITALS: BP 115/67
[2019-04-20 16:10] VITALS: BP 133/52
--- NOTE | 2019-04-20 17:02 | MORECARE ---
CASE MANAGEMENT DISCHARGE SUMMARY PATIENT: CE CHAPIN FANNIE UNIT: [id number] ADM DATE: 04/18/19 AGE: 68 : 52 SEX: F ROOM/BED: D.1210 AUTHOR: DINA PATEL PHYSICIAN: REFERRING PHYSICIAN: RADHA GRAY DO DATE OF SERVICE: 04/20/19 Discharge Plan Patient Name: CE CHAPIN Facility: [facility]:[place] : 1950 Planned Disposition: Anticipated Discharge Date: Discharge Date: Expected LOS: Initial Reviewer: [email or web address] Initial Review Date: 04/18/2019 Generated: 04/20/19 6:01 pm Comments DCP- Discharge Planning Updated by [email or web address]: Erin Lopez on 04/20/19 3:[address] Re-faxed [employer] form to [employer] @[phone]. Await recommendation. DCP- Discharge Planning Updated by [email or web address]: Erin Lopez on 04/19/19 9:[address] Plan: [facility]. CM met with patient to discuss initial discharge planning. Patient is in agreement to proceed with the assessment with present. Patient reports that she lives at home independently with her spouse. Patient is alert/oriented. Stairs/steps: 3 w/rails. PCP: Dr.Katherine Gaviria. Pharmacy: [place] [id number]. Patient states they have been able to obtain all of their prescribed medications. HHS: Yes HHS current. DME: Walker, cane, shower bench. Patient gives permission to speak with family members/care givers. Emergency contact: Camille Mcclellan (dtr) [phone].Patient is Independent with all ADL's, medication management RECRUITING INTERN. CM discussed the availability of HH, Rehab, DME services. Patient states she would like to go into [facility]. Patient denies being hospitalized within the past 30 days. Patient denies the use of community resources RECRUITING INTERN. Transportation at time of discharge: Facility. CM will assist with DC plans/needs PRN. Last DP export: 04/19/19 4:58 p Patient Name: CE CHAPIN Page 07105 at 1702 All edits/amendments must be made on the electronic document DICTATION DATE: 04/20/191700 COMMUNITY RELATIONS OFFICER: HIRAM 04/20/191700 RPT#: [id number] DC DATE: STATUS: ADM IN [facility] [address] [place] [address] END OF REPORT
--- NOTE | 2019-04-20 17:15 | NUR ---
ATE ABOUT HALF OF SUPPER. PLACED ON CPM AT THIS TIME. USED BED FELIX AND VOIDED CLEAR YELLOW URINE WITHOUT DIFFICULTY. DENIES NEEDS. NO CHANGES NOTED.
--- NOTE | 2019-04-20 17:34 | NUR ---
OT NOTE: PT COMPLETED CHAIR TO BED TRANSFER WITH MOD A X2. PT COMPLETED SIT TO SUPINE WITH MIN A FOR LE MANAGEMENT. PT EXHIBITED DECREASED SAFETY AWARENESS BY REACHING FOR OBJECTS BEYOND CENTER OF GRAVITY. PT REQUIRED VERBAL CUES FOR ATTENTION TO TASK. 104-120 THANK YOU,JOSE FRANKLIN
--- NOTE | 2019-04-20 17:36 | MORECARE ---
CASE MANAGEMENT DISCHARGE SUMMARY PATIENT: CE CHAPIN UNIT: [id number] ADM DATE: 04/18/19 AGE: 68 : 52 SEX: F ROOM/BED: D.1210 AUTHOR: AMANDA,DOC PHYSICIAN: REFERRING PHYSICIAN: RADHA GRAY DO DATE OF SERVICE: 04/20/19 Discharge Plan Patient Name: CE CHAPIN Facility: [facility]:[place] : 1950 Planned Disposition: Anticipated Discharge Date: Discharge Date: Expected LOS: Initial Reviewer: [email or web address] Initial Review Date: 04/18/2019 Generated: 04/20/19 6:36 pm Comments DCP- Discharge Planning Updated by [email or web address]: Erin Lopez on 04/20/19 4:[address] Just received P[employer] exemption. Patient should be able to DC to [facility] 04/20. CM contacted ALBA Tierney of [place], made her aware of same and faxed exemption to [phone]. CM notified Dr. Gray, nursing and Dr. Bojorquez. Kelsy or a cordage sales representative will notify CM of ability to accept this patient 04/20. DCP- Discharge Planning Updated by [email or web address]: Erin Lopez on 04/20/19 3:[address] Re-faxed [employer] form to [employer] @[phone]. Await recommendation. DCP- Discharge Planning Updated by [email or web address]: Erin Lopez on 04/19/19 9:[address] Plan: [facility]. CM met with patient to discuss initial discharge planning. Patient is in agreement to proceed with the assessment with present. Patient reports that she lives at home independently with her spouse. Patient is alert/oriented. Stairs/steps: 3 w/rails. PCP: Dr.Katherine Gaviria. Pharmacy: [facility]. Patient states they have been able to obtain all of their prescribed medications. HHS: Yes HHS current. DME: Walker, cane, shower bench. Patient gives permission to speak with family members/care givers. Emergency contact: Camille Mcclellan (dtr) [phone].Patient is Independent with all ADL's, medication management MISSION COMMANDER. CM discussed the availability of HH, Rehab, DME services. Patient states she would like to go into [facility]. Patient denies being hospitalized within the past 30 days. Patient denies the use of community resources MISSION COMMANDER. Transportation at time of discharge: Facility. CM will assist with DC plans/needs PRN. Last DP export: 04/20/19 4:02 p Patient Name: CE CHAPIN Page [id number] at 1736 All edits/amendments must be made on the electronic document DICTATION DATE: 04/20/191735 CLOUD OPERATIONS ENGINEER: HIRAM 04/20/191735 RPT#: [id number] DC DATE: STATUS: ADM IN [facility] [address] [place] [address] END OF REPORT
--- NOTE | 2019-04-20 19:20 | NUR ---
PT SITTING UP IN BED WITHOUT DISTRESS, AOX4. CPM TO LEFT KNEE. DRESSING AND SOO WRAP CDI. PROVENA IN PLACE. REQUESTING TORADOL WHEN TIME TO REMOVE CPM. DENIES OTHER NEEDS. CL IN REACH, WILL CTM
--- NOTE | 2019-04-20 20:10 | NUR ---
CPM OFF AT THIS TIME. PT ASSISTED ON AND OFF BEDPAN TO VOID. TORADOL GIVEN FOR PAIN 10/18. SOO WRAP REMOVED FROM LEFT LEG. SCDS PLACED BILAT. ICE PACK PROVIDED FOR LEFT LEG. DENIES OTHER NEEDS. CL IN REACH, WILL CTM
[2019-04-20 20:36] VITALS: BP 129/53
--- NOTE | 2019-04-20 23:00 | NUR ---
PT STATES PAIN 10/18, GAVE OXY AND VISTARIL ORDERED. DENIES OTHER NEEDS, WILL CTM
[2019-04-21 00:49] VITALS: BP 104/40
[2019-04-21 04:55] VITALS: BP 109/48
--- NOTE | 2019-04-21 05:15 | NUR ---
CPM ON AT THIS TIME
[2019-04-21 06:27] LABS: BASOPHILS 0.3 % (0-2); HEMATOCRIT 27.2 % (36.0-48.0); HEMOGLOBIN 8.8 g/dL (12-16); IMMATURE GRANULOCYTES 0.3 % (0-5); LYMPHOCYTES 23.2 % (15-50); MCH 30.1 pg (26.0-34.0); MCHC 32.4 g/dL (31.0-37.0); MCV 93.2 fL (80.0-100.0); MONOCYTES 16.4 % (2-11); NEUTROPHILS 58.8 % (40-80); PLATELET COUNT 191 10x3/uL (130-400); RBC 2.92 10x6/uL (4.00-5.40); RDW 16.7 % (11.5-14.5); WBC 6.8 10x3/uL (4.8-10.8)
--- NOTE | 2019-04-21 07:15 | NUR ---
PT RESTING QUIETLY IN BED WATCHING TV. RESP EVEN AND UNLABORED. RATES PAIN 4/10 AT THIS TIME. DISCUSSED WITH PT NEXT DOSE THAT CAN BE ADMINISTERED PER MD ORDERS. PT VOICES UNDERSTANDING. CPM IN PLACE TO LEFT LOWER EXTREMITY. DRESSING TO EXTREMITY C/D/I. MOVES TOES, EXTREMITY WARM TO TOUCH. DENIES FURTHER NEEDS AT THIS TIME. CL WITHIN REACH. ENCOURAGED TO CALL WITH NEEDS. CONTINUE POC
[2019-04-21 07:17] VITALS: BP 116/57
[2019-04-21 07:24] LABS: CALC OSMOLALITY 273 mosm/kg (275-300); CALCIUM 8.9 mg/dL (8.5-10.1); CARBON DIOXIDE 29.7 mmol/L (21.0-32.0); CHLORIDE - SERUM 103 mmol/L (98-107); CREATININE - SERUM 0.6 mg/dL (0.6-1.3); GLUCOSE 97 mg/dL (74-106); POTASSIUM - SERUM 3.7 mmol/L (3.5-5.1); SODIUM 138 mmol/L (136-145); eGFR NON AFRICAN AMERICAN > 90 mL/min (90-120)
[2019-04-21 07:26] LABS: UREA NITROGEN 6 mg/dL (7-18)
[2019-04-21] MEDS ORDERED: ELIQUIS2.5 MG PO (07:34)
[2019-04-21] MEDS ORDERED: OXYCODONE HCL10 MG PO (07:34)
[2019-04-21] MEDS ORDERED: KEFLEX500 MG PO (07:35)
[2019-04-21] MEDS ORDERED: VISTARIL50 MG PO (07:35)
[2019-04-21 11:01] VITALS: BP 114/61
--- NOTE | 2019-04-21 13:15 | NUR ---
PT ASSISTED TO BSC WITH WALKER. SALINE LOC DISCONTINUED RIGHT HAND, CATH INTACT. ASSISTED PT WITH DRESSING FOR D/C AND BACK TO CHAIR AT BEDSIDE. PT JOB WELL.
--- NOTE | 2019-04-21 13:21 | MORECARE ---
CASE MANAGEMENT DISCHARGE SUMMARY PATIENT: CE CHAPIN UNIT: [id number] ADM DATE: 04/18/19 AGE: 68 : 52 SEX: F ROOM/BED: D.1210 AUTHOR: AMANDA,DOC PHYSICIAN: REFERRING PHYSICIAN: RADHA GRAY DO DATE OF SERVICE: 04/21/19 Discharge Plan Patient Name: CE CHAPIN Facility: [facility]:[place] : 1950 Planned Disposition: Anticipated Discharge Date: Discharge Date: Expected LOS: Initial Reviewer: [email or web address] Initial Review Date: 04/18/2019 Generated: 04/21/19 2:21 pm Comments DCP- Discharge Planning Updated by [email or web address]: Erin Lopez on 04/20/19 4:[address] Just received PASS[employer] exemption. Patient should be able to DC to [facility] 04/20. CM contacted ALBA Tierney of [place], made her aware of same and faxed exemption to #[phone]. CM [address]. Gray, nursing and Dr. Bojroquez. Kelsy or a student services representative will notify CM of ability to accept this patient 04/20. DCP- Discharge Planning Updated by [email or web address]: Erin Lopez on 04/20/19 3:[address] Re-faxed [employer] form to [employer] @[phone]. Await recommendation. DCP- Discharge Planning Updated by [email or web address]: Erin Lopez on 04/19/19 9:[address] Plan: [facility]. CM met with patient to discuss initial discharge planning. Patient is in agreement to proceed with the assessment with present. Patient reports that she lives at home independently with her spouse. Patient is alert/oriented. Stairs/steps: 3 w/rails. PCP: Dr.Katherine Gaviria. Pharmacy: [facility]. Patient states they have been able to obtain all of their prescribed medications. HHS: Yes HHS current. DME: Walker, cane, shower bench. Patient gives permission to speak with family members/care givers. Emergency contact: Camille Mcclellan (dtr) [phone].Patient is Independent with all ADL's, medication management EDGE BANDING OFF BEARER. CM discussed the availability of HH, Rehab, DME services. Patient states she would like to go into [facility]. Patient denies being hospitalized within the past 30 days. Patient denies the use of community resources EDGE BANDING OFF BEARER. Transportation at time of discharge: Facility. CM will assist with DC plans/needs PRN. External Providers External Provider: [facility] Next Contact Date: Service Request Date: Service Type: Resolution: Reviewer: Comments: Last DP export: 04/20/19 4:36 p Patient Name: CE CHAPIN Page 11288 at 1321 All edits/amendments must be made on the electronic document DICTATION DATE: 04/21/19 1321 MUSEUM SECURITY CHIEF: HIRAM 04/21/19 1321 RPT#: [id number] DC DATE: STATUS: ADM IN [facility] [address] [place] [address] END OF REPORT
--- NOTE | 2019-04-21 13:47 | MORECARE ---
CASE MANAGEMENT DISCHARGE SUMMARY PATIENT: CE CHAPIN UNIT: [id number] ADM DATE: 04/18/19 AGE: 68 : 52 SEX: F ROOM/BED: D.1210 AUTHOR: AMANDA,DOC PHYSICIAN: REFERRING PHYSICIAN: RADHA GRAY DO DATE OF SERVICE: 04/21/19 Discharge Plan Patient Name: CE CHAPIN Facility: [facility]:[place] : 1950 Planned Disposition: Anticipated Discharge Date: Discharge Date: Expected LOS: Initial Reviewer: [email or web address] Initial Review Date: 04/18/2019 Generated: 04/21/19 2:47 pm Comments DCP- Discharge Planning Updated by [email or web address]: Allison Mckeon on 04/21/19 12:[address] DC PLAN: Discharging to [facility] in a medicare bed today. Patient discharged and accepted to [facility] today. Viki to call back with picker machine operator time. CM has faxed dc information to the facility. Nurse report needs to be called to [phone] and ask for the nurse admitting patient. Allison Mckeon RN, [facility] DCP- Discharge Planning Updated by [email or web address]: Erin Lopez on 04/20/19 4:[address] Just received P[employer]AS exemption. Patient should be able to DC to [facility] 04/20. CM contacted ALBA Tierney of [place], made her aware of same and faxed exemption to [phone]. CM [address] Gray, nursing and Dr. Bojorquez. Kelsy or a logistics service representative will notify CM of ability to accept this patient 04/20. DCP- Discharge Planning Updated by [email or web address]: Erin Lopez on 04/20/19 3:[address] Re-faxed [employer] form to [employer] @[phone]. Await recommendation. DCP- Discharge Planning Updated by [email or web address]: Erin Lopez on 04/19/19 9:[address] Plan: [facility]. CM met with patient to discuss initial discharge planning. Patient is in agreement to proceed with the assessment with present. Patient reports that she lives at home independently with her spouse. Patient is alert/oriented. Stairs/steps: 3 w/rails. PCP: Dr.Katherine Gaviria. Pharmacy: [facility]. Patient states they have been able to obtain all of their prescribed medications. HHS: Yes HHS current. DME: Walker, cane, shower bench. Patient gives permission to speak with family members/care givers. Emergency contact: Camille Mcclellan (dtr) [phone].Patient is Independent with all ADL's, medication management BOOK RETAILER. CM discussed the availability of HH, Rehab, DME services. Patient states she would like to go into [facility]. Patient denies being hospitalized within the past 30 days. Patient denies the use of community resources BOOK RETAILER. Transportation at time of discharge: Facility. CM will assist with DC plans/needs PRN. Last DP export: 04/21/19 12:21 p Patient Name: CE CHAPIN Page [id number] at 1347 All edits/amendments must be made on the electronic document DICTATION DATE: 04/21/19 1347 MUSIC MANAGER: HIRAM 04/21/19 1347 RPT#: [id number] DC DATE: STATUS: ADM IN [facility] [address] [place] [address] END OF REPORT
--- NOTE | 2019-04-21 13:57 | MORECARE ---
CASE MANAGEMENT DISCHARGE SUMMARY PATIENT: CE CHAPIN UNIT: [id number] ADM DATE: 04/18/19 AGE: 68 : 52 SEX: F ROOM/BED: D.1210 AUTHOR: AMANDA,DOC PHYSICIAN: REFERRING PHYSICIAN: RADHA GRAY DO DATE OF SERVICE: 04/21/19 Discharge Plan Patient Name: CE CHAPIN Facility: [facility]:[place] : 1950 Planned Disposition: Anticipated Discharge Date: Discharge Date: Expected LOS: Initial Reviewer: [email or web address] Initial Review Date: 04/18/2019 Generated: 04/21/19 2:56 pm Comments DCP- Discharge Planning Updated by [email or web address]: Allison Mckeon on 04/21/19 12:[address] DC PLAN: Discharging to [facility] ([place], [place]) in a medicare bed today. Patient discharged and accepted to [facility] ([place], [place]) today. Viki to call back with picker and sorter load and unload time. CM has faxed dc information to the facility. Nurse report needs to be called to [phone] and ask for the nurse admitting patient. Allison Mckeon RN, [facility] DCP- Discharge Planning Updated by [email or web address]: Erin Lopez on 04/20/19 4:[address] Just received PASSAS exemption. Patient should be able to DC to [facility] 04/20. CM contacted ALBA Tierney of [place], made her aware of same and faxed exemption to #[phone]. CM notified Dr. Gray, nursing and Dr. Bojorquez. Kelsy or a enrollment representative will notify CM of ability to accept this patient 04/20. DCP- Discharge Planning Updated by [email or web address]: Erin Lopez on 04/20/19 3:[address] Re-faxed [employer] form to [employer] @[phone]. Await recommendation. DCP- Discharge Planning Updated by [email or web address]: Erin Lopez on 04/19/19 9:[address] Plan: [facility]. CM met with patient to discuss initial discharge planning. Patient is in agreement to proceed with the assessment with present. Patient reports that she lives at home independently with her spouse. Patient is alert/oriented. Stairs/steps: 3 w/rails. PCP: Dr.Katherine Gaviria. Pharmacy: [facility]. Patient states they have been able to obtain all of their prescribed medications. HHS: Yes HHS current. DME: Walker, cane, shower bench. Patient gives permission to speak with family members/care givers. 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 CM discussed the availability of HH, Rehab, DME services. Patient states she would like to go into [facility]. Patient denies being hospitalized within the past 30 days. Patient denies the use of community resources TRACER BULLET SECTION SUPERVISOR. Transportation at time of discharge: Facility. CM will assist with DC plans/needs PRN. Last DP export: 04/21/19 12:47 p Patient Name: CE CHAPIN Page 41205 at 1357 All edits/amendments must be made on the electronic document DICTATION DATE: 04/21/19 1356 HEEL BRUSHER: HIRAM 04/21/19 1356 RPT#: [id number] DC DATE: STATUS: ADM IN [facility] [address] [place] [address] END OF REPORT
--- NOTE | 2019-04-21 15:30 | NUR ---
PT DISCHARGE PAPER WORK DISCUSSED WITH PT. EDUCATED PT REGARDING PREVENA VAC, MEDICATIONS AND WOUND. PT VOICES UNDERSTANDING. REPORT CALLED TO [facility]. AWAITING TRANSPORTATION TO FACILITY.
--- NOTE | 2019-04-21 16:00 | NUR ---
PT DISCHARGED WITH ALL PERSONAL BELONGINGS VIA W/C
--- NOTE | 2019-04-21 18:49 | NUR ---
OT NOTE: PT COMPLETED SIT TO STAND WITH MIN/MOD A. PT COMPLETED BED TO CHAIR TRANSFER WITH MIN A. PT DOING WELL. [phone] THANK YOU,JOSE FRANKLIN
== END 2019-04-21 16:20 | DRG 470 ==
LOC: D.SDCHOLD 04-12 10:00 → D.M3 04-18 07:20 → D.SDCHOLD 04-18 09:30 → D.M3 04-18 15:45 → D.SDCHOLD 04-20 13:52 → D.M3 04-21 16:20
PROVIDERS: Internal Medicine Nephrology; ADMIT Orthopaedic Surgery; ATTEND Orthopaedic Surgery
PROC: 0SRD0J9 Replacement of Left Knee Joint with Synthetic Substitute, Cemented, Open Approach (ICD-10-PCS; principal; 2019-04-18 09:30)
DX: M17.12 Unilateral primary osteoarthritis, left knee (principal); D62 Acute posthemorrhagic anemia; N39.0 Urinary tract infection, site not specified; N17.9 Acute kidney failure, unspecified; K21.9 Gastro-esophageal reflux disease without esophagitis; E03.9 Hypothyroidism, unspecified; F41.8 Other specified anxiety disorders; G89.29 Other chronic pain; M54.9 Dorsalgia, unspecified; B96.20 Unspecified Escherichia coli [E. coli] as the cause of diseases classified elsewhere; Z95.0 Presence of cardiac pacemaker; Z87.891 Personal history of nicotine dependence

== ENCOUNTER → 2020-07-17 13:56 | Outpatient (CLI) | payer OTHER, MEDICAID ==
[2019-04-19 14:48] VITALS: BMI 47.8
[~2020-07-17 13:56] MED LIST changes: +ELIQUIS2.5 MG PO; +KEFLEX500 MG PO; +OXYBUTYNIN CHLOR5 MG PO; +OXYCODONE HCL10 MG PO; +PROAIR HFA8.5 G1 INH; +VISTARIL50 MG PO
== END | disposition home or self-care (01) ==
LOC: D.RT 13:56
PROVIDERS: ATTEND Internal Medicine Pulmonary Disease
DX: R06.09 Other forms of dyspnea (principal)